=== PATIENT | male | born 1980 | race Caucasian/White ===

== ENCOUNTER 2017-11-22 07:06 | Outpatient (CLI) | payer BC ==
--- NOTE | 2017-11-22 07:52 | ULT ---
RIGHT UPPER QUADRANT SONOGRAM: Date: 11/22/17 HISTORY: Abnormal liver function tests. FINDINGS: Gallbladder contains a small amount of nonshadowing debris. No gallbladder wall thickening or pericho lecystic fluid. Common duct is 0.4 cm. Liver is diffusely echogenic without focal mass or intrahepati c biliary dilatation. No free fluid. IMPRESSION: 1. Cholelithiasis. No evidence of acute biliary obstruction. 2. Hepatic steatosis. POS: [facility]
== END 2017-11-22 07:07 | disposition home or self-care (01) ==
LOC: SCSULT 07:06
PROVIDERS: ATTEND Family Medicine
DX: R74.8 Abnormal levels of other serum enzymes (principal); K80.20 Calculus of gallbladder without cholecystitis without obstruction; K76.0 Fatty (change of) liver, not elsewhere classified
CPT/HCPCS: 76705